=== PATIENT | male | born 1985 | race Native Hawaiian/Other Pacific Islander ===

== ENCOUNTER 2020-01-16 09:09 | Emergency (ER) | payer SELFPAY ==
[2020-01-16 10:02] VITALS: BP 133/81
[2020-01-16] MEDS ORDERED: LIDOCAINE-MPF (1%) 10 MG/1 ML VIAL 5 ML INFILTRATI ONE (11:26)
--- NOTE | 2020-01-16 11:28 | Cat Scan Report ---
CT head/brain wo con INDICATION / CLINICAL INFORMATION: 34 years Male; Head injury, + LOC. TECHNIQUE: Routine CT head without contrast. All CT scans at this location are performed using CT dos e reduction for ALARA by means of automated exposure control. COMPARISON: None. FINDINGS: BRAIN / INTRACRANIAL CONTENTS: The brain appears to demonstrate appropriate attenuation. The ventricu lar system is within normal limits in size and configuration. The findings appear most consistent wit h small of vessels projected within the basal ganglia. There is no definitive CT evidence of acute in tracranial hemorrhage or significant mass effect. ORBITS: No significant abnormality of visualized orbits. SINUSES / MASTOIDS: There is minimal mucosal thickening within the left maxillary sinus. CRANIOCERVICAL JUNCTION: No significant abnormality. ADDITIONAL FINDINGS: None. IMPRESSION: 1. There is no CT evidence of acute intracranial process. Signer Name: Jamaal Garrison MD Signed: 01/16/2020 11:23 AM Workstation Name: [id number]
--- NOTE | 2020-01-16 11:29 | Emergency Department Report ---
ED Head Trauma HPI - General Chief complaint: Head Injury Stated complaint: HEAD LAC Time Seen by Provider: 01/16/20 11:17 Source: patient, family Mode of arrival: Ambulatory Limitations: Language Barrier - History of Present Illness Initial comments: Patient is a 34-year-old male presents emergency room with complaints of a laceration to the head that occurred just prior to arrival. The patient states he was walking up the steps to get onto the porch when he tripped over the first step and hit his head against a screened door. He states that he did fall to the ground and hit his head but did not have loss of consciousness. He denies any numbness, weakness, bowel or bladder incontinence, any other injury. He states his last tetanus immunization was 4 years ago. He denies any past medical history or allergies to medications. Iraqi interpretation performed by patient's significant other - Related Data Allergies/Adverse reactions: Allergies Allergy/AdvReac Type Severity Reaction Status Date / Time No Known Allergies Allergy Unverified 01/16/20 10:02 ED Review of Systems ROS: Stated complaint: HEAD LAC Other details as noted in HPI Comment: All other systems reviewed and negative ED Past Medical Hx - Past Medical History Previous Medical History?: No - Surgical History Past Surgical History?: No ED Physical Exam - General Limitations: No Limitations General appearance: alert, in no apparent distress - Head Head exam: Present: other (5 cm laceration present to the frontal scalp, no muscle involvement, no foreign body visualized, no active bleeding) - Eye Eye exam: Present: normal appearance, PERRL, EOMI. Absent: periorbital swelling, periorbital tenderness - ENT ENT exam: Present: mucous membranes moist - Neck Neck exam: Present: normal inspection, full ROM. Absent: tenderness - Respiratory Respiratory exam: Present: normal lung sounds bilaterally. Absent: respiratory distress, wheezes, rales, rhonchi, stridor, chest wall tenderness, accessory muscle use, decreased breath sounds, prolonged expiratory - Cardiovascular Cardiovascular Exam: Present: regular rate, normal rhythm, normal heart sounds. Absent: systolic murmur, diastolic murmur, rubs, gallop - Neurological Exam Neurological exam: Present: alert, oriented X3, CN II-XII intact, normal gait. Absent: motor sensory deficit - Psychiatric Psychiatric exam: Present: normal affect, normal mood - Skin Skin exam: Present: warm, dry ED Course Vital Signs 01/16/20 09:53 Pulse Rate 72 Blood Pressure 133/81 O2 Sat by Pulse 94 Oximetry - Laceration /Wound Repair Head Wound Location: head (frontal scalp) Wound Length (cm): 5 Wound's Depth, Shape: superficial Wound Explored: clean Irrigated w/ Saline (ccs): 500 Betadine Prep?: Yes Anesthesia: 1% Lidocaine Volume Anesthetic (ccs): 5 Wound Debrided: minimal Number of Sutures: 10 (10 ely placed) Layer Closure?: No Sterile Dressing Applied?: Yes Progress: Wound irrigated with saline and thoroughly scrubbed with Betadine, 5 cm superficial laceration present to the frontal scalp, no muscle involvement, no foreign body, 5 cc of 1% lidocaine without epinephrine used as anesthetic, Betadine prep, sterile gloves worn, sterile drapes applied, 10 ely placed, patient tolerated well, no complications, bleeding controlled - Radiology Data Radiology results: report reviewed CT head/brain wo con INDICATION / CLINICAL INFORMATION: 34 years Male; Head injury, + LOC. TECHNIQUE: Routine CT head without contrast. All CT scans at this location are performed using CT dose reduction for ALARA by means of automated exposure control. COMPARISON: None. FINDINGS: BRAIN / INTRACRANIAL CONTENTS: The brain appears to demonstrate appropriate attenuation. The ventricular system is within normal limits in size and configuration. The findings appear most consistent with small of vessels projected within the basal ganglia. There is no definitive CT evidence of acute intracranial hemorrhage or significant mass effect. ORBITS: No significant abnormality of visualized orbits. SINUSES / MASTOIDS: There is minimal mucosal thickening within the left maxillary sinus. CRANIOCERVICAL JUNCTION: No significant abnormality. ADDITIONAL FINDINGS: None. IMPRESSION: 1. There is no CT evidence of acute intracranial process. Signer Name: Jamaal Garrison MD Signed: 01/16/2020 11:23 AM Workstation Name: [id number] Transcribed By: MR Dictated By: Jamaal Garrison MD Electronically Authenticated By: Jamaal Garrison MD Signed Date/Time: 01/16/20 1123 DD/ 1116 TD/TT: - Medical Decision Making Patient is a 34-year-old male presents emergency room with complaints of a laceration to the head that occurred just prior to arrival. The patient states he was walking up the steps to get onto the porch when he tripped over the first step and hit his head against a screened door. He states that he did fall to the ground and hit his head but did not have loss of consciousness. He denies any numbness, weakness, bowel or bladder incontinence, any other injury. He states his last tetanus immunization was 4 years ago. He denies any past medical history or allergies to medications. Iraqi interpretation performed by patient's significant other On exam: 5 cm laceration present to the frontal scalp, no muscle involvement, no foreign body visualized, no active bleeding, no neuro deficits. CT head: 1. There is no CT evidence of acute intracranial process. Laceration irrigated with saline and thoroughly scrubbed with Betadine and repaired per procedure note with ely. advised pt to please keep area clean, dry, covered. May wash around the area with soap and water and immediately dry. No hot tub, no pool, no soaking in water, ely need to be removed in 5 to 7 days. Follow-up with your primary care doctor for reexamination. Return to the emergency room for any new or worsening symptoms or any signs of infection. - Differential Diagnosis ICH, skull fx, SDH, SAH, epidural hematoma, laceration, abrasion - NEXUS Criteria Focal neurological deficit present: No Midline spinal tenderness present: No Altered level of consciousness: No Intoxication present: No Distracting injury present: No NEXUS results: C-Spine can be cleared clinically by these results. Imaging is not required. Critical care attestation.: If time is entered above; I have spent that time in minutes in the direct care of this critically ill patient, excluding procedure time. ED Disposition Clinical Impression: Head injury Qualifiers: Encounter type: initial encounter Qualified Code(s): S09.90XA - Unspecified injury of head, initial encounter Scalp laceration Qualifiers: Encounter type: initial encounter Qualified Code(s): S01.01XA - Laceration without foreign body of scalp, initial encounter Disposition: - TO HOME OR SELFCARE Is pt being admited?: No Does the pt Need Aspirin: No Condition: Stable Instructions: Laceration (ED), Minor Head Injury (ED), Staple Care (ED) Additional Instructions: Please keep area clean, dry, covered. May wash around the area with soap and water and immediately dry. No hot tub, no pool, no soaking in water, ely need to be removed in 5 to 7 days. Follow-up with your primary care doctor for reexamination. Return to the emergency room for any new or worsening symptoms or any signs of infection. Mantenga el darrius limpia, seca, cubierta. Puede lavarse alrededor de la jan con agua y jabn y secarse inmediatamente. No hay baera de hidromasaje, no hay piscina, no hay remojo en el agua, los alimentos bsicos deben ser retirados en 5 a 7 joshua. Seguimiento con oliveros mdico de atencin primaria para oliveros reexamen. Regrese a la myra de emergencias para detectar cualquier sntoma nuevo o que empeore o cualquier signo de infeccin. Referrals: BAN PRATT MD [Staff Physician] - 3-5 Days [facility] [Outside] - 3-5 Days [facility] [Outside] - 3-5 Days Time of Disposition: 11:49 Print Language: SYRIAC
== END 2020-01-16 12:25 | disposition home or self-care (01) ==
LOC: ED 09:09
DX: S01.01XA Laceration without foreign body of scalp, initial encounter (principal); S09.90XA Unspecified injury of head, initial encounter; W18.39XA Other fall on same level, initial encounter; Y93.89 Activity, other specified; Y92.89 Other specified places as the place of occurrence of the external cause; Y99.8 Other external cause status
CPT/HCPCS: 70450; 99283